=== PATIENT | male | born 1930 | race Caucasian/White ===

== ENCOUNTER 2020-10-04 13:17 | Inpatient (IN) | payer OTHER, MEDICARE ==
[~2020-10-04] VITALS: Ht 167.6 cm; Wt 93.5 kg
[2020-10-04 14:11] LABS: BASOPHILS ABSOLUTE AUTO 0.03 K/mm3 (0.00-0.23); BASOPHILS PERCENT AUTO 0 % (0-2); EOSINOPHILS ABSOLUTE AUTO 0.02 K/mm3 (0.00-0.68); EOSINOPHILS PERCENT AUTO 0 % (0-6); Hematocrit 40.7 % (37.0-53.0); Hemoglobin 13.3 g/dL (13.5-17.5); IMMATURE GRAN ABSOLUTE AUTO 0.06 K/mm3 (0.00-0.10); IMMATURE GRAN PERCENT AUTO 1 % (0-1); LYMPHOCYTES ABSOLUTE AUTO 0.59 K/mm3 (0.84-5.20); LYMPHOCYTES PERCENT AUTO 5 % (21-46); MONOCYTES ABSOLUTE AUTO 1.26 K/mm3 (0.16-1.47); MONOCYTES PERCENT AUTO 11 % (4-13); Mean Corpuscular HGB 29.6 pg (26.0-34.0); Mean Corpuscular HGB Conc 32.7 g/dL (31.5-36.5); Mean Corpuscular Volume 90 fL (80-100); Mean Platelet Volume 10.5 fL (9.1-12.4); NEUTROPHILS ABSOLUTE AUTO 9.76 K/mm3 (1.96-9.15); NEUTROPHILS PERCENT AUTO 83 % (41-73); Platelet Count 176 K/mm3 (150-400); RDW Coefficient Variation 13.9 % (11.7-14.2); RDW Standard Deviation 46.4 fL (35.1-46.3); White Blood Cell Count 11.72 K/mm3 (4.00-11.30)
[2020-10-04 14:47] LABS: Albumin, Blood 3.4 g/dL (3.4-5.0); Albumin/Globulin Ratio 1.1 (0.8-1.8); Bilirubin, Total 0.6 mg/dL (0.1-1.0); Calcium, Blood 8.3 mg/dL (8.5-10.1); Creatinine, Blood 1.48 mg/dL (0.60-1.20); Globulin, Blood 3.1 g/dL (2.2-4.0); Potassium, Blood 4.5 mmol/L (3.5-5.5); Total Protein, Blood 6.5 g/dL (6.4-8.2)
[2020-10-04 14:58] LABS: Troponin I 0.579 ng/mL (0.000-0.040)
[2020-10-04] MEDS ORDERED: FAMO20 PO (14:58)
[2020-10-04] MEDS ORDERED: PLAVIX75 MG PO (14:59)
[2020-10-04] MEDS ORDERED: LOSARTAN POTAS100 M1 PO (14:59)
[2020-10-04] MEDS ORDERED: INSULANPEN SC (15:26)
[2020-10-04] MEDS ORDERED: BUMETANIDE2 M2 PO (15:26)
[2020-10-04 15:37] LABS: Source, Urine Clean Catch
[2020-10-04 15:39] LABS: Appearance, Urine Clear (Clear); Bilirubin, Urine Neg (Neg); Blood, Urine 4+ (Neg); Color, Urine Yellow (P-Yellow); Glucose Qualitative, Urine Neg (Neg); Ketones, Urine Neg (Neg); Leukocyte Esterase, Urine 2+ (Neg); Nitrite, Urine Neg (Neg); Protein, Urine 4+ (Neg); Urobilinogen, Urine NORM (Normal)
[2020-10-04] MEDS ORDERED: DOXAZOSIN MESYLA4 M2 PO (15:44)
[2020-10-04 16:02] LABS: Bacteria Few /hpf; Hyaline Casts 0-2 /lpf (0-2); Squamous Epithelial Cells Few /hpf (Few)
--- NOTE | 2020-10-04 19:21 | NUR ---
ADMIT NOTE RECIEVED REPORT FROM LUZ ELENA IN ER. PT TO ROOM VIA MEJIA AT 1840. FOUR PERSON TRANSFER ASSIST TO BED. PT ON RA, BP ELEVATED AT 195/90, ALERT AND ORIENTED TO SELF, PLACE, EVENT. PT STATED THAT HE SUSTAINED INJURY FROM FALL ON RIGHT MARMOLEJO. THERE IS ALSO SOME BRUISING LOCATED RIGHT FLANK AND HIP. PT APPEARS CALM AND COMFORTABLE. CALL LIGHT IN REACH, BED LOW AND LOCKED.
[2020-10-04 22:48] LABS: Creatine Kinase MB 14.7 ng/mL (0.0-3.6); Creatine Kinase MB Index 1.5 (0.0-4.0)
[2020-10-04 22:59] LABS: Troponin I 0.995 ng/mL (0.000-0.040)
--- NOTE | 2020-10-05 06:28 | NUR ---
CHARTING THIS RN HAS REVIEWED STUDENT RN'S NOTES/CHARTING AND AGREE WITH ALL ABOVE. DOWNTIME PAPERCHARTING THIS SHIFT FROM 0000 - 0615. SEE CHART.
[2020-10-05 06:37] LABS: Hematocrit 36.2 % (37.0-53.0); Hemoglobin 11.8 g/dL (13.5-17.5); Mean Corpuscular HGB 29.1 pg (26.0-34.0); Mean Corpuscular HGB Conc 32.6 g/dL (31.5-36.5); Mean Corpuscular Volume 89 fL (80-100); Mean Platelet Volume 10.3 fL (9.1-12.4); Platelet Count 177 K/mm3 (150-400); RDW Standard Deviation 45.4 fL (35.1-46.3); Red Blood Cell Count 4.05 M/mm3 (4.30-5.90); White Blood Cell Count 9.04 K/mm3 (4.00-11.30)
[2020-10-05 07:21] LABS: Anion Gap 5 mmol/L (6-16); Blood Urea Nitrogen 34 mg/dL (8-24); Bun/Creatinine Ratio 21.2 (12.0-20.0); CHOL/HDL RATIO 3.8; CO2, Blood 23 mmol/L (21-32); CPK Creatine Kinase 872 U/L (39-308); Calcium, Blood 7.8 mg/dL (8.5-10.1); Chloride, Blood 114 mmol/L (98-108); Cholesterol 195 mg/dL (50-200); Creatine Kinase MB 10.5 ng/mL (0.0-3.6); Creatine Kinase MB Index 1.2 (0.0-4.0); Glomerular Filtration Rate 44 (60-); Glucose, Blood 106 mg/dL (70-99); HDL Cholesterol 51 mg/dL (>39); LDL/HDL RATIO 2.3; Low Density Lipoprotein Chol 118 mg/dL (0-110); Potassium, Blood 4.1 mmol/L (3.5-5.5); Sodium, Blood 142 mmol/L (136-145); Triglycerides 131 mg/dL (30-160); Very Low Density Lipoprot Chol 26 mg/dL (6-32)
[2020-10-05 07:28] LABS: Troponin I 0.619 ng/mL (0.000-0.040)
--- NOTE | 2020-10-05 16:35 | NUR ---
NEW ORDER FOR IGOR NOTED, PT RECEIVING IV FLUIDS, CALLED DR BRYSON TO CLARIFY ORDERS; NEW ORDERS TO DISCONTINUE IV FLUIDS NOW. CALLED DR WADE REGARDINS PT STATUS; PLANS TO STAY ANOTHER NIGHT; NEW ORDERS FOR MEDICAL STATUS WITH TELE. WILL CONTINUE TO HAYDEE.
--- NOTE | 2020-10-05 18:18 | NUR ---
SHIFT SUMMARY PT A&Oxx4; FORGETFUL AND SETTING OFF BEDALARM SEVERAL TIME T/O SHIFT. PT UP TO BATHROOM WITH 1PERSON ASSIST. PT DENIES PAIN, CHEST PAIN, SOB, NAUSEA AND DIZZINESS T/O SHIFT. DR SORIANO AT BEDSIDE THIS MORNING, PLANS TO DISCHARGE WITH ZIO PATCH FOR 2 WEEKS. BP TRENDING DOWN. TELE SINUS 60-70'S. OTHER VSS. NO OTHER ACUTE CHANGES NOTED. WILL CONTINUE TO MONITOR UNITL REPORT GIVEN TO ONCOMING RN.
--- NOTE | 2020-10-05 23:53 | NUR ---
TRANSFER OF CARE PATIENT IS ALERT AND ORIENTED BUT CAN BE IMPULSIVE AT TIMES. VSS. PATIENT DENIES CHEST PAIN. ABLE TO AMBULATE TO BATHROOM WITH STANDBY ASSIST AND USE OF CANE. NO ACUTE CHANGES SINCE CHANGE OF SHIFT. PATIENT TRANSFERED TO MEDICAL FLOOR AT 2350. ALL BELONGINGS WITH PATIENT. TRANSPORTED VIA WHEELCHAIR WITH [employer].
--- NOTE | 2020-10-06 00:02 | NUR ---
IV IS ACTUALLY IN THE R FA, NOT THE HAND.
--- NOTE | 2020-10-06 00:14 | NUR ---
10/05/20 2357 PT ARRIVED TO ROOM VIA WHEELCHAIR FROM PCU IN STABLE CONDITION. PT DENIES ANY DISCOMFORT AT THIS TIME. AGREE WITH PREVIOUS FLOATING LABOR GANG SUPERVISOR'S ASSESSMENT EXCEPT EDEMA IN LE'S I WOULD CLASSIFY 1+ PITTING. TELE IS NSR AT 60 PER TELE NECKTIES PAINTER. NO APPARENT SIGNS OF DISTRESS. CALL LIGHT IS IN REACH.
--- NOTE | 2020-10-06 03:52 | NUR ---
0230 PT LYING IN BED, EYES CLOSED, APPEARS TO BE RESTING. BREATHING IS EVEN, UNLABORED. NO APPARENT SIGNS OF DISTRESS. CALL LIGHT IS IN REACH. BED ALARM IS ON.
--- NOTE | 2020-10-06 03:53 | NUR ---
PT SET BED ALARM OFF. DRILLING AND PRODUCTION SUPERINTENDENT ASSISTING PT TO BATHROOM. NO OTHER APPARENT SIGNS OF DISTRESS. CALL LIGHT IS IN REACH.
--- NOTE | 2020-10-06 03:54 | NUR ---
PT IS AAO X 4 BUT DOES NOT REMEMBER TO USE HIS CALL LIGHT, BED ALARM IS IN USE. ON RA. TELE NSR. LAST BS WAS 192. PT DENIED ANY DISCOMFORT FOR THIS SHIFT. PT HAS EDEMA IN LE'S, 1+. PT HAS BRUISES AND ABRASIONS ON LE'S, R SHOULDER, R HIP, R BACK, R RIBS, BELLY. PT HAD TOENAIL RIPPED OFF OF THE L GREAT TOE, BANDAIDE IN PLACE. THERE IS A DRESSING ON THE R MARMOLEJO. UNK LAST BM, PT REFUSING STOOL SOFTENERS.
[2020-10-06 06:17] LABS: Albumin, Blood 2.8 g/dL (3.4-5.0); Anion Gap 4 mmol/L (6-16); Blood Urea Nitrogen 43 mg/dL (8-24); Bun/Creatinine Ratio 22.1 (12.0-20.0); CO2, Blood 24 mmol/L (21-32); Calcium, Blood 7.7 mg/dL (8.5-10.1); Chloride, Blood 115 mmol/L (98-108); Creatinine, Blood 1.95 mg/dL (0.60-1.20); Glomerular Filtration Rate 35 (60-); Glucose, Blood 124 mg/dL (70-99); Potassium, Blood 4.4 mmol/L (3.5-5.5); Sodium, Blood 143 mmol/L (136-145)
--- NOTE | 2020-10-06 06:19 | NUR ---
PER DR SORIANO, VERBAL ORDER, GIVE LOPRESSOR AND LOSARTAN NOW AND RECHECK VS AGAIN AT 0830.
--- NOTE | 2020-10-06 06:25 | NUR ---
PT LYING IN BED, AWAKE, NO APPARENT SIGNS OF DISTRESS. CALL LIGHT IS IN REACH. BED ALARM IS ON. NO OTHER CHANGES THIS SHIFT.
[2020-10-06] MEDS ORDERED: ASPI81CH PO (13:19)
[2020-10-06] MEDS ORDERED: ATOR20 PO (13:20)
[2020-10-06] MEDS ORDERED: Colace100 MG PO (13:20)
[2020-10-06] MEDS ORDERED: METO50 PO (13:21)
[2020-10-06] MEDS ORDERED: SENN187 PO (13:21)
--- NOTE | 2020-10-06 16:43 | NUR ---
PT AAOX4. PLEASANT AND COOPERATIVE WITH CARE. SBA. DENIES PAIN. NO SOB, LIANG NOTED. RR EVEN AND UNLABORED RA. IV R HAND SALINE LOCKED AND REMOVED AT DISCHARGE. APPETITE GOOD. PT AGREEABLE TO DC. [facility] DISCHARGE INSTUCTIONS AND MEDICATIONS REVIEWED, HE IS ABLE TO TEACH BACK, HE HAS NO QUESTIONS OR CONCERNS AT THIS TIME. PT DISCHARGED TO HOME 1515.
== END 2020-10-06 15:15 | disposition home or self-care (01) | DRG 281 ==
LOC: ER 13:17 → PCU 16:42 → MEDS 16:42 → PCU 17:25 → MEDS 18:40 → ENPENDDIS 10-06 12:50 → MEDS 10-06 15:15
PROVIDERS: Physician Assistant; ADMIT Internal Medicine
DX: I16.0 Hypertensive urgency (principal); I21.4 Non-ST elevation (NSTEMI) myocardial infarction; N17.9 Acute kidney failure, unspecified; I50.32 Chronic diastolic (congestive) heart failure; I13.0 Hypertensive heart and chronic kidney disease with heart failure and stage 1 through stage 4 chronic kidney disease, or unspecified chronic kidney disease; Z66 Do not resuscitate; N18.30 Chronic kidney disease, stage 3 unspecified; G47.33 Obstructive sleep apnea (adult) (pediatric); K21.9 Gastro-esophageal reflux disease without esophagitis; I27.20 Pulmonary hypertension, unspecified; Z60.2 Problems related to living alone; E66.9 Obesity, unspecified; N40.0 Benign prostatic hyperplasia without lower urinary tract symptoms; W18.30XA Fall on same level, unspecified, initial encounter; I65.22 Occlusion and stenosis of left carotid artery; I08.3 Combined rheumatic disorders of mitral, aortic and tricuspid valves; I25.10 Atherosclerotic heart disease of native coronary artery without angina pectoris; S90.412A Abrasion, left great toe, initial encounter; S80.811A Abrasion, right lower leg, initial encounter; S20.411A Abrasion of right back wall of thorax, initial encounter; S20.311A Abrasion of right front wall of thorax, initial encounter; E11.22 Type 2 diabetes mellitus with diabetic chronic kidney disease; E78.5 Hyperlipidemia, unspecified; Z79.02 Long term (current) use of antithrombotics/antiplatelets; Z86.73 Personal history of transient ischemic attack (TIA), and cerebral infarction without residual deficits; Z87.891 Personal history of nicotine dependence; Z79.4 Long term (current) use of insulin; Z79.899 Other long term (current) drug therapy
CPT/HCPCS: 36415; 70450; 71046; 80048; 80053; 80061; 80069; 81001; 82550; 82553; 82947; 83036; 83880; 84484; 85025; 85027; 87086; 93005; 93010; 93246; 93306; 93880; 96374; 97116; 97162; 97165; 97530; 97535; 99285-25; A9270; J0360; J1650; J7030

== ENCOUNTER 2021-03-01 09:08 | Inpatient (IN) | payer OTHER ==
[~2021-03-01] VITALS: Ht 167.6 cm; Wt 122.5 kg
[~2021-03-01 09:08] MED LIST: ATOR20 PO; Aspir 8181 MG PO; BUMETANIDE2 M2 PO; Colace100 MG PO; DOXAZOSIN MESYLA4 M2 PO; FAMO20 PO; INSULANPEN SC; LOSARTAN POTAS100 M1 PO; METO50 PO; PLAVIX75 MG PO; SENN187 PO
[2021-03-01 09:43] LABS: BASOPHILS ABSOLUTE AUTO 0.04 K/mm3 (0.00-0.23); BASOPHILS PERCENT AUTO 1 % (0-2); EOSINOPHILS ABSOLUTE AUTO 0.17 K/mm3 (0.00-0.68); EOSINOPHILS PERCENT AUTO 3 % (0-6); Hematocrit 40.1 % (37.0-53.0); Hemoglobin 12.6 g/dL (13.5-17.5); IMMATURE GRAN ABSOLUTE AUTO 0.01 K/mm3 (0.00-0.10); IMMATURE GRAN PERCENT AUTO 0 % (0-1); LYMPHOCYTES ABSOLUTE AUTO 0.73 K/mm3 (0.84-5.20); LYMPHOCYTES PERCENT AUTO 13 % (21-46); MONOCYTES ABSOLUTE AUTO 0.68 K/mm3 (0.16-1.47); MONOCYTES PERCENT AUTO 12 % (4-13); Mean Corpuscular HGB 28.2 pg (26.0-34.0); Mean Corpuscular HGB Conc 31.4 g/dL (31.5-36.5); Mean Corpuscular Volume 90 fL (80-100); Mean Platelet Volume 10.7 fL (9.1-12.4); NEUTROPHILS ABSOLUTE AUTO 4.05 K/mm3 (1.96-9.15); NEUTROPHILS PERCENT AUTO 71 % (41-73); Platelet Count 189 K/mm3 (150-400); RDW Coefficient Variation 16.2 % (11.7-14.2); RDW Standard Deviation 52.5 fL (35.1-46.3); Red Blood Cell Count 4.47 M/mm3 (4.30-5.90); White Blood Cell Count 5.68 K/mm3 (4.00-11.30)
[2021-03-01 09:58] LABS: Albumin, Blood 3.1 g/dL (3.4-5.0); Albumin/Globulin Ratio 0.9 (0.8-1.8); Bilirubin, Total 0.7 mg/dL (0.1-1.0); Bun/Creatinine Ratio 17.8 (12.0-20.0); Calcium, Blood 9.3 mg/dL (8.5-10.1); Creatinine, Blood 1.63 mg/dL (0.60-1.20); Globulin, Blood 3.5 g/dL (2.2-4.0); Potassium, Blood 4.1 mmol/L (3.5-5.5); Total Protein, Blood 6.6 g/dL (6.4-8.2); Troponin I 0.104 ng/mL (0.000-0.040)
[2021-03-01 11:31] LABS: SARS-Cov-2 (COVID-19) PCR, MMC NEGATIVE (NEGATIVE)
--- NOTE | 2021-03-01 17:33 | NUR ---
PT ADMITTED TO MEDICAL FLOOR AT 1530 FROM ED,PT AO X 4,PT HAVE SOB WITH EXERTION,PT ON 2L NC,PT DENIES PAIN,N/V.PT ON TELE RUNNING SINUS RATE 90,PT HAVE DISCOLORATIONS AND BRUISES BILATERAL LEGS UP TO KNEES,PT USES URENAL,PT IS A STANDBY ASSIST WITH A CANE.PT IN BED RESTING,BED IN LOW POSITION CALL LIGHT IN [facility] WILL CONTINUE TO MONITOR.
[2021-03-02 05:20] LABS: BASOPHILS ABSOLUTE AUTO 0.04 K/mm3 (0.00-0.23); BASOPHILS PERCENT AUTO 1 % (0-2); EOSINOPHILS ABSOLUTE AUTO 0.14 K/mm3 (0.00-0.68); EOSINOPHILS PERCENT AUTO 3 % (0-6); Hematocrit 35.4 % (37.0-53.0); Hemoglobin 11.1 g/dL (13.5-17.5); IMMATURE GRAN ABSOLUTE AUTO 0.01 K/mm3 (0.00-0.10); IMMATURE GRAN PERCENT AUTO 0 % (0-1); LYMPHOCYTES ABSOLUTE AUTO 0.73 K/mm3 (0.84-5.20); LYMPHOCYTES PERCENT AUTO 14 % (21-46); MONOCYTES ABSOLUTE AUTO 0.67 K/mm3 (0.16-1.47); MONOCYTES PERCENT AUTO 13 % (4-13); Mean Corpuscular HGB 28.2 pg (26.0-34.0); Mean Corpuscular HGB Conc 31.4 g/dL (31.5-36.5); Mean Corpuscular Volume 90 fL (80-100); Mean Platelet Volume 10.6 fL (9.1-12.4); NEUTROPHILS ABSOLUTE AUTO 3.68 K/mm3 (1.96-9.15); NEUTROPHILS PERCENT AUTO 70 % (41-73); Platelet Count 165 K/mm3 (150-400); RDW Coefficient Variation 16.2 % (11.7-14.2); RDW Standard Deviation 52.7 fL (35.1-46.3); Red Blood Cell Count 3.93 M/mm3 (4.30-5.90); White Blood Cell Count 5.27 K/mm3 (4.00-11.30)
[2021-03-02 05:48] LABS: Bun/Creatinine Ratio 16.5 (12.0-20.0); Calcium, Blood 8.7 mg/dL (8.5-10.1); Creatinine, Blood 2.06 mg/dL (0.60-1.20); Magnesium, Blood 2.4 mg/dL (1.6-2.4); Potassium, Blood 4.3 mmol/L (3.5-5.5)
--- NOTE | 2021-03-02 06:03 | NUR ---
PT HAS BEEN IN BED QUIET. O2 2L VIA NC IN PLACE. REMAINS SOB ON EXERTION. DENIES ANY DISCOMFORT. SAFETY AND COMFORT MEASURES MAINTAINED. SINUS GONZALEZ ON TELE 52. NO TELE EVENT. WILL CONTINUE TO MONITOR.
--- NOTE | 2021-03-02 19:21 | NUR ---
SHIFT SUMMARY PATIENT IS ALERT AND ORIENTED, COOPERATIVE WITH CARE. PATIENT IS CURRENTLY IN BED. PATIENT IS ON 2 LITERS OF 02 VIA NASAL CANNULA. PATIENT IS ON A 1200ML FLUID RESTRICTION. PATIENT'S HEART RATE DID DIP IN THE 4O'S, DOC WAS NOTIFIED. PATIENT'S CALL LIGHT WITHIN REACH. WILL CALL APPROPRIATELY.
[2021-03-03 06:24] LABS: Bun/Creatinine Ratio 17.5 (12.0-20.0); Calcium, Blood 8.6 mg/dL (8.5-10.1); Creatinine, Blood 2.57 mg/dL (0.60-1.20); Magnesium, Blood 2.4 mg/dL (1.6-2.4); Potassium, Blood 4.2 mmol/L (3.5-5.5)
--- NOTE | 2021-03-03 06:36 | NUR ---
SHIFT SUMMARY PATIENT ALERT AND ORIENTED X3. NO COMPLAINTS OF PAIN OR SHORTNESS OF BREATH. NO ACUTE ISSUES NOTED OVERNGIHT. BED IN LOWEST POSITION WITH WHEELS LOCKED AND ALARM ON. CALL LIGHT WITHIN REACH. REPORT GIVEN TO ONCOMING RN.
--- NOTE | 2021-03-03 17:28 | NUR ---
SHIFT SUMMARY PATIENT IS ALERT AND ORIENTED, AND COOPERATIVE WITH CARE. PATIENT IS STILL DIURESING. HANY CAME FOR A CONSULT. PATIENT DOES NOT NEED DIALYSIS AT THIS TIME. NO ACUTE CHANGES THIS SHIFT. POSSIBLE PLAN FOR DISCHARGE WITHIN A DAY OR TWO.
--- NOTE | 2021-03-04 04:39 | NUR ---
SHIFT SUMMARY PT SLIGHTLY FORGETFUL AT TIMES BUT OTHERWISE WAS A/O THROUGHOUT THE NIGHT. CALLED APPROPRIATELY MOST OF THE TIME. BED ALARM ON FOR SAFETY. CONTINENT WITH URINAL. PT DOES APPEAR TO GET SOB WITH EXERTION BUT RECOVERS WELL. REMAINED ON RA THROUGH MOST OF THE NIGHT BUT WITH MORNING VITALS PT O2 SATS WERE 86-88% ON RA AND PT WAS PLACED ON 1 L WITH O2 SATS IN THE LOW 90'S. LUNG SOUNDS DIMINISHED THROUGHOUT. TELEMETRY PER OPTICAL WORKER SINUS GONZALEZ WITH INVERTED T WAVES AT 54. PT STAYED WELL WITHIN FLUID RESTRICTION. VITAL SIGNS STABLE. PT HAD A MOSTLY UNEVENTFUL NIGHT. WILL CONTINUE TO MONITOR.
[2021-03-04 05:57] LABS: BASOPHILS ABSOLUTE AUTO 0.03 K/mm3 (0.00-0.23); BASOPHILS PERCENT AUTO 1 % (0-2); EOSINOPHILS ABSOLUTE AUTO 0.14 K/mm3 (0.00-0.68); EOSINOPHILS PERCENT AUTO 3 % (0-6); Hematocrit 34.7 % (37.0-53.0); Hemoglobin 10.8 g/dL (13.5-17.5); IMMATURE GRAN ABSOLUTE AUTO 0.01 K/mm3 (0.00-0.10); IMMATURE GRAN PERCENT AUTO 0 % (0-1); LYMPHOCYTES ABSOLUTE AUTO 0.77 K/mm3 (0.84-5.20); LYMPHOCYTES PERCENT AUTO 18 % (21-46); MONOCYTES ABSOLUTE AUTO 0.64 K/mm3 (0.16-1.47); MONOCYTES PERCENT AUTO 15 % (4-13); Mean Corpuscular HGB 28.2 pg (26.0-34.0); Mean Corpuscular HGB Conc 31.1 g/dL (31.5-36.5); Mean Corpuscular Volume 91 fL (80-100); Mean Platelet Volume 11.5 fL (9.1-12.4); NEUTROPHILS ABSOLUTE AUTO 2.74 K/mm3 (1.96-9.15); NEUTROPHILS PERCENT AUTO 63 % (41-73); Platelet Count 155 K/mm3 (150-400); RDW Standard Deviation 53.1 fL (35.1-46.3); Red Blood Cell Count 3.83 M/mm3 (4.30-5.90); White Blood Cell Count 4.33 K/mm3 (4.00-11.30)
[2021-03-04 06:17] LABS: Albumin, Blood 2.5 g/dL (3.4-5.0); Albumin/Globulin Ratio 0.8 (0.8-1.8); Bilirubin, Total 0.5 mg/dL (0.1-1.0); Bun/Creatinine Ratio 20.7 (12.0-20.0); Calcium, Blood 8.5 mg/dL (8.5-10.1); Creatinine, Blood 2.37 mg/dL (0.60-1.20); Magnesium, Blood 2.3 mg/dL (1.6-2.4); Phosphorus, Blood 4.1 mg/dL (2.5-4.9); Potassium, Blood 4.2 mmol/L (3.5-5.5); Total Protein, Blood 5.5 g/dL (6.4-8.2)
--- NOTE | 2021-03-04 16:23 | NUR ---
SHIFT SUMMARY PATIENT DENIES PAIN, NAUSEA, AND SHORTNESS OF BREATH. PATIENT IS A SBA TO THE BATHROOM. PATIENT IS ON 1L N/C. MAINTAINING SATS IN THE MID 90S. PATIENT IS EATING AND DRINKING WELL. PT WORKED WITH PATIENT. PT RECOMMENDED HOME WITH HOME HEALTH AND INCREASED [facility] SUPPORT. PATIENT NAPPED IN THE AFTERNOON. PATIENT CAN INDEPENDENTLY USE THE URINAL. PATIENT IS PLEASANT AND COOPERATIVE WITH CARE.
[2021-03-05 05:18] LABS: Hematocrit 33.8 % (37.0-53.0); Hemoglobin 10.6 g/dL (13.5-17.5)
[2021-03-05 05:47] LABS: Albumin, Blood 2.5 g/dL (3.4-5.0); Anion Gap 3 mmol/L (6-16); Blood Urea Nitrogen 52 mg/dL (8-24); Bun/Creatinine Ratio 22.8 (12.0-20.0); CO2, Blood 31 mmol/L (21-32); Calcium, Blood 8.5 mg/dL (8.5-10.1); Chloride, Blood 109 mmol/L (98-108); Creatinine, Blood 2.28 mg/dL (0.60-1.20); Glomerular Filtration Rate 27 (60-); Glucose, Blood 109 mg/dL (70-99); Magnesium, Blood 2.2 mg/dL (1.6-2.4); Phosphorus, Blood 3.8 mg/dL (2.5-4.9); Potassium, Blood 4.4 mmol/L (3.5-5.5); Sodium, Blood 143 mmol/L (136-145)
--- NOTE | 2021-03-05 07:42 | NUR ---
SHIFT SUMMARY PT IS AN 89 Y/O MALE, ADMITTED FOR CHF EXACERBATION. HE IS A&O X 3, SBA OUT OF BED. TELE SHOWED NSR/SB IN THE 50-60S. NO C/O ACUTE PAIN, NAUSEA OR SOB. NO ACUTE CHANGES IN PT CONDITION NOTED DURING THE NIGHT. WILL CONTINUE TO MONITOR AND TREAT PER EMAR UNTIL HAND OFF TO DAY SHIFT RN.
--- NOTE | 2021-03-05 18:13 | NUR ---
PT AO X 4,PT DENIES ANY PAIN,N/V,SOB,PT ON TELE SINUS GONZALEZ.PT ON 1L NC SATS IN HIGH 90S,PT UP WITH WALKER TO BATHROOM,PT USES URENAL INDEPEND.PT HAS NO ACUTES EVENTS T/O SHIFT,PT UP IN THE CHAIR,CALL LIGHT IN REACH WILL CONTINUE TO MONITOR.
[2021-03-06 04:41] LABS: Hematocrit 32.3 % (37.0-53.0); Hemoglobin 10.1 g/dL (13.5-17.5)
[2021-03-06 04:57] LABS: Albumin, Blood 2.3 g/dL (3.4-5.0); Anion Gap 3 mmol/L (6-16); Blood Urea Nitrogen 50 mg/dL (8-24); Bun/Creatinine Ratio 24.3 (12.0-20.0); CO2, Blood 31 mmol/L (21-32); Calcium, Blood 8.3 mg/dL (8.5-10.1); Chloride, Blood 111 mmol/L (98-108); Creatinine, Blood 2.06 mg/dL (0.60-1.20); Glomerular Filtration Rate 31 (60-); Glucose, Blood 100 mg/dL (70-99); Magnesium, Blood 2.2 mg/dL (1.6-2.4); Phosphorus, Blood 3.4 mg/dL (2.5-4.9); Potassium, Blood 4.1 mmol/L (3.5-5.5); Sodium, Blood 145 mmol/L (136-145)
--- NOTE | 2021-03-06 05:35 | NUR ---
RIGGING FOREMAN SUMMARY HAS BEEN RESTING QUIETLY WITH FEW INTERRUPTIONS THIS SHIFT. SAID INTERRUPTIONS INCLUDED ASSISTANCE WITH BEING CHANGED FOR INCONTINENCE. REPOSITIONING, ETC. HOB REMAINS ELEVATED. CALL LIGHT IN REACH.
--- NOTE | 2021-03-06 14:03 | NUR ---
PT AO,PT DENIES PAIN,NV,SOB.PT ON ROOM AIR SATTING IN THE 90S,PT ASSESSMENT REMAINS UNCHANGED.PT IS DISCHARGE HOME WITH PERSONNEL ASSOCIATE,PT GATHER ALL BELONGINGS,PT SITTING UP IN CHAIR WAITING FOR TRANSPORT.
--- NOTE | 2021-03-06 15:35 | NUR ---
Pt.is in bed resting he reports doing fien encouraged pt and offered prayerd.
== END 2021-03-06 12:36 | disposition home health service (06) | DRG 291 ==
LOC: ER 09:08 → MEDS 09:09 → ENPENDDIS 03-06 12:40
PROVIDERS: Emergency Medicine; Internal Medicine Nephrology; ADMIT Internal Medicine
DX: I13.0 Hypertensive heart and chronic kidney disease with heart failure and stage 1 through stage 4 chronic kidney disease, or unspecified chronic kidney disease (principal); N17.0 Acute kidney failure with tubular necrosis; I50.21 Acute systolic (congestive) heart failure; J96.01 Acute respiratory failure with hypoxia; N25.81 Secondary hyperparathyroidism of renal origin; E87.0 Hyperosmolality and hypernatremia; Z20.822 Contact with and (suspected) exposure to COVID-19; K21.9 Gastro-esophageal reflux disease without esophagitis; I27.20 Pulmonary hypertension, unspecified; D63.1 Anemia in chronic kidney disease; M10.9 Gout, unspecified; N40.0 Benign prostatic hyperplasia without lower urinary tract symptoms; F10.10 Alcohol abuse, uncomplicated; G47.33 Obstructive sleep apnea (adult) (pediatric); I08.3 Combined rheumatic disorders of mitral, aortic and tricuspid valves; I65.22 Occlusion and stenosis of left carotid artery; I25.10 Atherosclerotic heart disease of native coronary artery without angina pectoris; Z66 Do not resuscitate; N18.30 Chronic kidney disease, stage 3 unspecified; E78.5 Hyperlipidemia, unspecified; J44.9 Chronic obstructive pulmonary disease, unspecified; E11.22 Type 2 diabetes mellitus with diabetic chronic kidney disease; I25.2 Old myocardial infarction; Z87.891 Personal history of nicotine dependence; Z86.73 Personal history of transient ischemic attack (TIA), and cerebral infarction without residual deficits; Z98.890 Other specified postprocedural states; Z79.02 Long term (current) use of antithrombotics/antiplatelets; Z79.82 Long term (current) use of aspirin; Z79.899 Other long term (current) drug therapy
CPT/HCPCS: 36415; 71045; 76770; 80048; 80053; 80069; 82947; 83735; 83880; 84100; 84484; 85014; 85018; 85025; 90686; 93005; 93010; 94761; 94762; 96372; 96374; 96376; 97110; 97116; 97162; 99285-25; A9270; C8929; G0378; J1650; J1815; Q9957; U0004

== ENCOUNTER 2021-03-28 10:43 | Inpatient (IN) | payer OTHER ==
[~2021-03-28] VITALS: Ht 167.6 cm; Wt 90.7 kg
[~2021-03-28 10:43] MED LIST changes: -Colace100 MG PO
[2021-03-28 11:31] LABS: BASOPHILS ABSOLUTE AUTO 0.06 K/mm3 (0.00-0.23); BASOPHILS PERCENT AUTO 1 % (0-2); EOSINOPHILS ABSOLUTE AUTO 0.16 K/mm3 (0.00-0.68); EOSINOPHILS PERCENT AUTO 3 % (0-6); Hematocrit 39.2 % (37.0-53.0); Hemoglobin 12.2 g/dL (13.5-17.5); IMMATURE GRAN ABSOLUTE AUTO 0.02 K/mm3 (0.00-0.10); IMMATURE GRAN PERCENT AUTO 0 % (0-1); LYMPHOCYTES ABSOLUTE AUTO 0.89 K/mm3 (0.84-5.20); LYMPHOCYTES PERCENT AUTO 16 % (21-46); MONOCYTES ABSOLUTE AUTO 0.63 K/mm3 (0.16-1.47); MONOCYTES PERCENT AUTO 12 % (4-13); Mean Corpuscular HGB Conc 31.1 g/dL (31.5-36.5); Mean Corpuscular Volume 90 fL (80-100); Mean Platelet Volume 10.9 fL (9.1-12.4); NEUTROPHILS ABSOLUTE AUTO 3.72 K/mm3 (1.96-9.15); NEUTROPHILS PERCENT AUTO 68 % (41-73); Platelet Count 194 K/mm3 (150-400); RDW Coefficient Variation 15.9 % (11.7-14.2); Red Blood Cell Count 4.35 M/mm3 (4.30-5.90); White Blood Cell Count 5.48 K/mm3 (4.00-11.30)
[2021-03-28 12:10] LABS: Albumin/Globulin Ratio 0.8 (0.8-1.8); Bilirubin, Total 0.5 mg/dL (0.1-1.0); Bun/Creatinine Ratio 20.2 (12.0-20.0); Calcium, Blood 9.2 mg/dL (8.5-10.1); Creatinine, Blood 1.73 mg/dL (0.60-1.20); Globulin, Blood 3.6 g/dL (2.2-4.0); Potassium, Blood 4.3 mmol/L (3.5-5.5); Total Protein, Blood 6.6 g/dL (6.4-8.2); Troponin I 0.228 ng/mL (0.000-0.040)
[2021-03-28] MEDS ORDERED: DOXAZOSIN MESYLA2 MG PO (15:46)
[2021-03-28] MEDS ORDERED: DOCU100 PO (16:11)
--- NOTE | 2021-03-28 19:44 | NUR ---
ADMIT NOTE 89 YR OLD MALE ADMITTED TO FLOOR FROM HE ED WITH DX OF CHF EXACERBATION. ALERT TO QUESTIONS ASKED. NKA. ORIENTE TO USE OF CALL LIGHT AND BED CONROL. CALL LIGHT IN REACH,
--- NOTE | 2021-03-29 04:53 | NUR ---
WAYBILL CLERK SUMMARY PT WAS ADMITTED AT SHIFT COMMENCE WITH CHF. 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 MED TELE IN THE 70'S, BUT OCCASIONALLY DROPPED INTO THE HIGH 40'S. EACH TIME WAS ASSESSED AND WAS FOUND TO BE SLEEPING. DENIED CHEST PAIN. CALL LIGHT IN REACH
[2021-03-29 05:00] LABS: BASOPHILS ABSOLUTE AUTO 0.05 K/mm3 (0.00-0.23); BASOPHILS PERCENT AUTO 1 % (0-2); EOSINOPHILS ABSOLUTE AUTO 0.17 K/mm3 (0.00-0.68); EOSINOPHILS PERCENT AUTO 4 % (0-6); Hemoglobin 11.1 g/dL (13.5-17.5); IMMATURE GRAN ABSOLUTE AUTO 0.02 K/mm3 (0.00-0.10); IMMATURE GRAN PERCENT AUTO 1 % (0-1); LYMPHOCYTES ABSOLUTE AUTO 0.74 K/mm3 (0.84-5.20); LYMPHOCYTES PERCENT AUTO 18 % (21-46); MONOCYTES ABSOLUTE AUTO 0.54 K/mm3 (0.16-1.47); MONOCYTES PERCENT AUTO 13 % (4-13); Mean Corpuscular HGB 27.8 pg (26.0-34.0); Mean Corpuscular HGB Conc 30.8 g/dL (31.5-36.5); Mean Corpuscular Volume 90 fL (80-100); Mean Platelet Volume 11.2 fL (9.1-12.4); NEUTROPHILS ABSOLUTE AUTO 2.58 K/mm3 (1.96-9.15); NEUTROPHILS PERCENT AUTO 63 % (41-73); Platelet Count 164 K/mm3 (150-400); RDW Coefficient Variation 15.6 % (11.7-14.2); RDW Standard Deviation 51.5 fL (35.1-46.3); Red Blood Cell Count 3.99 M/mm3 (4.30-5.90)
[2021-03-29 05:35] LABS: Albumin, Blood 2.7 g/dL (3.4-5.0); Albumin/Globulin Ratio 0.9 (0.8-1.8); Bilirubin, Total 0.5 mg/dL (0.1-1.0); Bun/Creatinine Ratio 19.3 (12.0-20.0); Calcium, Blood 8.5 mg/dL (8.5-10.1); Creatinine, Blood 1.76 mg/dL (0.60-1.20); Magnesium, Blood 2.1 mg/dL (1.6-2.4); Potassium, Blood 4.2 mmol/L (3.5-5.5); Total Protein, Blood 5.7 g/dL (6.4-8.2)
--- NOTE | 2021-03-29 18:40 | NUR ---
PT ALERT ORIENTED X 3,BUT FORGETFUL AT TIMES.PT UP WITH WALKER TO BATROOM,PT USE UNRINAL INDEPEND.PT HAVE BLE REDNESS LEG.PT ON 1L NC SATS IN 90S.PT IN BED,CALL LIGHT IN REACH WILL CONTINUE TO MONITOR.
--- NOTE | 2021-03-30 06:28 | NUR ---
SHIFT SUMMARY PATIENT HAD NO ACUTE CHANGES OBSERVED. BP MEDS HELD WITH HR 55 AND IN THE LOW 40'S ON DAY SHIFT. AXOX 3 AND INDEPENDENT IN ROOM. RESEARCH ASSISTANT PROFESSOR REPORTS NSR 61. DENIES CHEST PAIN, SOB, AND N/V. WCTM.
[2021-03-30 06:34] LABS: BASOPHILS ABSOLUTE AUTO 0.04 K/mm3 (0.00-0.23); BASOPHILS PERCENT AUTO 1 % (0-2); EOSINOPHILS ABSOLUTE AUTO 0.25 K/mm3 (0.00-0.68); EOSINOPHILS PERCENT AUTO 5 % (0-6); Hematocrit 33.5 % (37.0-53.0); Hemoglobin 10.6 g/dL (13.5-17.5); IMMATURE GRAN ABSOLUTE AUTO 0.01 K/mm3 (0.00-0.10); IMMATURE GRAN PERCENT AUTO 0 % (0-1); LYMPHOCYTES ABSOLUTE AUTO 0.85 K/mm3 (0.84-5.20); LYMPHOCYTES PERCENT AUTO 18 % (21-46); MONOCYTES ABSOLUTE AUTO 0.62 K/mm3 (0.16-1.47); MONOCYTES PERCENT AUTO 13 % (4-13); Mean Corpuscular HGB 28.3 pg (26.0-34.0); Mean Corpuscular HGB Conc 31.6 g/dL (31.5-36.5); Mean Corpuscular Volume 90 fL (80-100); Mean Platelet Volume 11.4 fL (9.1-12.4); NEUTROPHILS ABSOLUTE AUTO 2.92 K/mm3 (1.96-9.15); NEUTROPHILS PERCENT AUTO 62 % (41-73); Platelet Count 166 K/mm3 (150-400); RDW Coefficient Variation 15.3 % (11.7-14.2); Red Blood Cell Count 3.74 M/mm3 (4.30-5.90); White Blood Cell Count 4.69 K/mm3 (4.00-11.30)
[2021-03-30 07:15] LABS: Albumin, Blood 2.7 g/dL (3.4-5.0); Bilirubin, Total 0.4 mg/dL (0.1-1.0); Calcium, Blood 8.4 mg/dL (8.5-10.1); Creatinine, Blood 1.85 mg/dL (0.60-1.20); Globulin, Blood 2.8 g/dL (2.2-4.0); Total Protein, Blood 5.5 g/dL (6.4-8.2)
--- NOTE | 2021-03-30 08:00 | NUR ---
Pt laying in bed with eyes closed, wakes easily, a/ox3, pleasant and cooperative with care, follows commands well, denies pain, reports a goodn night, lungs are dim in bases, dominique left base, currently on r/a, resp even and unlabored, no cough noted, hrr, tele in place running sr per monitor, see strip, trace edema noted to b/l le, ppp+1, cap refill <3sec, vs stable, afebrile, iv site is clear and patent, btx4, abd flat soft nontender, voids without diff, skin c/w/d, maew, alvin, call light in reach.
--- NOTE | 2021-03-30 18:36 | NUR ---
pt has been up to chair for his meals, always says he's is doing fine and ready to go home, did have a 14 beat run of vtach this afternoon, Dr. Mar was notified and no new orders recieved. call light in reach.
--- NOTE | 2021-03-31 04:24 | NUR ---
SHIFT SUMMARY PATIENT REPORTED SOB WHILE SLEEPING AND ASKED TO BE PUT BACK ON OXYGEN. WAS STATING 95% AT SHIFT CHANGE ON RA AND ON 2L O2 NC DAY BEFORE. PLACED ON 2L O2 NC AND STATING 98%. LESS ANXIOUS AND ABLE TO GO BACK TO SLEEP. AXOX 3 AND INDEPENDENT IN ROOM. PIV REMAINS INTACT. VOLUNTEER COORDINATOR REPORTS NSR 74. DENIES CHEST PAIN AND N/V. VSS/AFEBRILE. CBG 129. COOPERATIVE WITH CARE. CALL LIGHT IN REACH. BED IN LOWEST POSITION. WILL CONTINUE TO MONITOR UNTIL DAY SHIFT NURSE ASSUMES CARE.
[2021-03-31 05:59] LABS: Calcium, Blood 8.4 mg/dL (8.5-10.1); Creatinine, Blood 1.9 mg/dL (0.60-1.20); Potassium, Blood 3.9 mmol/L (3.5-5.5); Thyroid Stimulating Hormone 0.576 uIU/mL (0.360-4.800)
[2021-03-31] MEDS ORDERED: METO25 PO (09:03)
--- NOTE | 2021-03-31 12:32 | NUR ---
PT IS A&O, PLEASANT AND CO-OP. INDEPENDENT IN RM AND TO BTHRM USING CANE. PT ABLE TO WALK IN HALLS WITH P/T; PT IS CURRENTLY AT BASELINE. RT NOTIFIED FOR HOME O2 EVAL. PT DOES NOT REQUIRE O2. PT REPORTS THAT HE DOES NOT WEAR IT. PT'S SON CALLED TO REQUEST MED LIST TO BE EMAILED TO HIM. NOTIFIED MEDICAL RECORDS TO CLARIFY. PT'S SON WILL NEED TO FILL OUT A REQUEST AFTER D/C. D/C MED LIST TO BE SENT HOME WITH PT FOR H/H RN TO HELP PT WITH HIS MEDS. D/C INSTRUCTIONS REVIEWED WITH PT; VERBALIZED UNDERSTANDING. PT ASSISTED WITH BELONGINGS. ABLE TO USE CALL LT NEEDED. TRANSPORTATION TO BE ARRANGED FOR AFTER LUNCH.
--- NOTE | 2021-03-31 15:13 | NUR ---
KENG RN UNABLE TO REACH CO FOR PT TRANSPORT. [facility] CALLED TO ASSIST PT HOME.
== END 2021-03-31 14:45 | disposition home health service (06) | DRG 291 ==
LOC: ER 10:43 → ERHOLD 14:13 → MEDS 14:13
PROVIDERS: Emergency Medicine; Nurse Practitioner Acute Care; ADMIT Internal Medicine
DX: I13.0 Hypertensive heart and chronic kidney disease with heart failure and stage 1 through stage 4 chronic kidney disease, or unspecified chronic kidney disease (principal); I50.23 Acute on chronic systolic (congestive) heart failure; J96.01 Acute respiratory failure with hypoxia; Z66 Do not resuscitate; R00.1 Bradycardia, unspecified; N18.30 Chronic kidney disease, stage 3 unspecified; I25.10 Atherosclerotic heart disease of native coronary artery without angina pectoris; E11.22 Type 2 diabetes mellitus with diabetic chronic kidney disease; K21.9 Gastro-esophageal reflux disease without esophagitis; N40.0 Benign prostatic hyperplasia without lower urinary tract symptoms; I25.5 Ischemic cardiomyopathy; E78.5 Hyperlipidemia, unspecified; I27.20 Pulmonary hypertension, unspecified; Z28.21 Immunization not carried out because of patient refusal; I35.0 Nonrheumatic aortic (valve) stenosis; I25.2 Old myocardial infarction; M10.9 Gout, unspecified; Z91.19 Patient's noncompliance with other medical treatment and regimen; G47.33 Obstructive sleep apnea (adult) (pediatric); Z79.02 Long term (current) use of antithrombotics/antiplatelets; Z79.82 Long term (current) use of aspirin; Z79.899 Other long term (current) drug therapy; Z86.73 Personal history of transient ischemic attack (TIA), and cerebral infarction without residual deficits
CPT/HCPCS: 36415; 71045; 80048; 80053; 82947; 83735; 83880; 84443; 84484; 85025; 93005; 93010; 94760; 96374; 97161; 99285-25; A9270; J1650

== ENCOUNTER 2021-04-20 04:30 | Inpatient (IN) | payer OTHER ==
[~2021-04-20] VITALS: Ht 175.3 cm; Wt 77.9 kg
[~2021-04-20 04:30] MED LIST changes: +DOCU100 PO; +DOXAZOSIN MESYLA2 MG PO; +METO25 PO
[2021-04-20 04:55] LABS: BASOPHILS ABSOLUTE AUTO 0.04 K/mm3 (0.00-0.23); BASOPHILS PERCENT AUTO 1 % (0-2); EOSINOPHILS ABSOLUTE AUTO 0.23 K/mm3 (0.00-0.68); EOSINOPHILS PERCENT AUTO 3 % (0-6); Hematocrit 40.5 % (37.0-53.0); Hemoglobin 12.6 g/dL (13.5-17.5); IMMATURE GRAN ABSOLUTE AUTO 0.03 K/mm3 (0.00-0.10); IMMATURE GRAN PERCENT AUTO 0 % (0-1); LYMPHOCYTES ABSOLUTE AUTO 1.13 K/mm3 (0.84-5.20); LYMPHOCYTES PERCENT AUTO 17 % (21-46); MONOCYTES ABSOLUTE AUTO 0.73 K/mm3 (0.16-1.47); MONOCYTES PERCENT AUTO 11 % (4-13); Mean Corpuscular HGB 27.9 pg (26.0-34.0); Mean Corpuscular HGB Conc 31.1 g/dL (31.5-36.5); Mean Corpuscular Volume 90 fL (80-100); Mean Platelet Volume 10.3 fL (9.1-12.4); NEUTROPHILS ABSOLUTE AUTO 4.61 K/mm3 (1.96-9.15); NEUTROPHILS PERCENT AUTO 68 % (41-73); Platelet Count 212 K/mm3 (150-400); RDW Standard Deviation 49.8 fL (35.1-46.3); Red Blood Cell Count 4.52 M/mm3 (4.30-5.90); White Blood Cell Count 6.77 K/mm3 (4.00-11.30)
[2021-04-20 05:40] LABS: Albumin, Blood 3.1 g/dL (3.4-5.0); Albumin/Globulin Ratio 0.8 (0.8-1.8); Bilirubin, Total 0.3 mg/dL (0.1-1.0); Bun/Creatinine Ratio 24.7 (12.0-20.0); Calcium, Blood 8.8 mg/dL (8.5-10.1); Creatinine, Blood 1.5 mg/dL (0.60-1.20); Globulin, Blood 3.7 g/dL (2.2-4.0); Potassium, Blood 4.3 mmol/L (3.5-5.5); Total Protein, Blood 6.8 g/dL (6.4-8.2); Troponin I 0.051 ng/mL (0.000-0.040)
[2021-04-20 05:53] LABS: Influenza A, PCR NEGATIVE (NEGATIVE); Influenza B, PCR NEGATIVE (NEGATIVE); Resp Syncytial Virus, PCR NEGATIVE (NEGATIVE); SARS-Cov-2 (COVID-19) PCR, MMC NEGATIVE (NEGATIVE)
--- NOTE | 2021-04-20 10:00 | NUR ---
ADMISSION PT ADMITTED FROM THE ER THIS AM.HE IS A&O X4. O2 VIA NC, RESP UNLABORED AT THIS TIME. PT WAS ABLE TO STAND AND TRANSFER FROM THE GURNY TO THE BED. PT DENIES CP/PRESSURE. TELE MONITOR PLACED, VSS, URINAL PROVIDED, BED IN LOW POSITION, CALL LIGHT IN REACH.
--- NOTE | 2021-04-20 18:32 | NUR ---
SHIFT SUMMARY PT REMAINS A&O X4, CALLS APPROPRIATLY PRN FOR ASSISTANCE TO THE BATHROOM OR USE OF THE URINAL. PT CONTINUES TO DENY CP/PRESSURE, VSS, ON RA AT THIS TIME, SPO2 >95%. PT DECIDED TO REWMOVE HIS O2 THIS EVENING, HE IS REFUSING TO WEAR IT, RESP UNLABORED, NC AT BEDSIDE, SPO2 MONITOR IN PLACE. PT IS TOLERARTING PO INTAKE. NO OTHER CHANGES NOTED, CALL LIGHT IN REACH, BED IN LOW POSITION.
--- NOTE | 2021-04-21 06:37 | NUR ---
SHIFT SUMMARY - NO ACUTE CHANGES THIS SHIFT. PT WAS ABLE TO AMBULATE TO BRP WITH CANE AND A SBA. PT WEARS AN ATTENDS, BUT IS ABLE TO STAND AT TOILET FOR URINATION, AND PLACING HANDS ON RIVAS. PT DENIED ANY COMPLAINTS DURING THE NIGHT. PT IS ON A FLUID RESTRICTION OF 1500. PT IS REQUESTING COFFEE THIS AM - PT ON CARDIAC DIET - WILL PROVIDE DECAF COFFEE. PT DENIED ANY HEADACHE, CHEST PAIN, NAUSEA, SOB, OR NUMBNESS/TINGLING. CALL LIGHT WITHIN REACH. BED IN LOW POSITION. BED ALARM ON FOR SAFETY. FLUIDS AT BEDSIDE.
--- NOTE | 2021-04-21 18:29 | NUR ---
PT IS VERY IMPULSIVE, PT WAS FOUND IN BATHROOM CLEANING UP FROM BM WHICH HE DID NOT CALL FOR ASSISTANCE TO GET UP. PT IS A/O X3, BUT IS VERY FORGETFUL. PT DIES REPORT IMPROVEMENT OF BREATHING T/O THE DAY, PT DOES APPEAR TO BE BREATHING BETTER THIS AFTERNOON, BUT MENTAL STATUS HAS REMAINED UNCHANGED
--- NOTE | 2021-04-21 21:40 | NUR ---
ASSUMED CARE OF PATIENT AT 1900. PATIENT A/OX4 WITH PERIODS ON IMPULSIVITY WITH TRYING TO GET UP. I GOT PATIENT UP TO THE BATHROOM AND HE WAS VERY UNSTEADY ON HIS FEET, CHANGED IT TO [facility] WITH 1 ASSIST. PUPILS 2 AND SLUGGISH BL, WITH FAINT +1 PEDAL AND RADIAL PULSES. SLIGHT FINE CRACKLES AT BASES WITH TOP DIM. SR WITH PVC'S ON MONITOR. ABRASION ON BUTTOCK FROM ITCHING THAT BLED SOME. MAINTAINING ABOVE 90% ON RA WITH HS NC. WILL UPDATE THIS NOTE WITH ANY CHANGES DURING THIS SHIFT
[2021-04-22 04:13] LABS: BASOPHILS ABSOLUTE AUTO 0.06 K/mm3 (0.00-0.23); BASOPHILS PERCENT AUTO 1 % (0-2); EOSINOPHILS ABSOLUTE AUTO 0.25 K/mm3 (0.00-0.68); EOSINOPHILS PERCENT AUTO 5 % (0-6); Hematocrit 34.6 % (37.0-53.0); Hemoglobin 10.7 g/dL (13.5-17.5); IMMATURE GRAN ABSOLUTE AUTO 0.02 K/mm3 (0.00-0.10); IMMATURE GRAN PERCENT AUTO 0 % (0-1); LYMPHOCYTES ABSOLUTE AUTO 0.91 K/mm3 (0.84-5.20); LYMPHOCYTES PERCENT AUTO 19 % (21-46); MONOCYTES PERCENT AUTO 13 % (4-13); Mean Corpuscular HGB 27.6 pg (26.0-34.0); Mean Corpuscular HGB Conc 30.9 g/dL (31.5-36.5); Mean Corpuscular Volume 89 fL (80-100); Mean Platelet Volume 10.2 fL (9.1-12.4); NEUTROPHILS ABSOLUTE AUTO 2.96 K/mm3 (1.96-9.15); NEUTROPHILS PERCENT AUTO 62 % (41-73); Platelet Count 170 K/mm3 (150-400); RDW Coefficient Variation 14.9 % (11.7-14.2); RDW Standard Deviation 48.9 fL (35.1-46.3); Red Blood Cell Count 3.87 M/mm3 (4.30-5.90)
[2021-04-22 04:48] LABS: Albumin, Blood 2.7 g/dL (3.4-5.0); Anion Gap 5 mmol/L (6-16); Blood Urea Nitrogen 47 mg/dL (8-24); CO2, Blood 28 mmol/L (21-32); Calcium, Blood 8.4 mg/dL (8.5-10.1); Chloride, Blood 110 mmol/L (98-108); Creatinine, Blood 1.88 mg/dL (0.60-1.20); Glomerular Filtration Rate 34 (60-); Glucose, Blood 103 mg/dL (70-99); Magnesium, Blood 2.2 mg/dL (1.6-2.4); Phosphorus, Blood 3.7 mg/dL (2.5-4.9); Potassium, Blood 4.2 mmol/L (3.5-5.5); Sodium, Blood 143 mmol/L (136-145)
[2021-04-22] MEDS ORDERED: LOSA25 PO (11:37)
--- NOTE | 2021-04-22 13:33 | NUR ---
PT EXPRESSED UNDERSTANDING OF NEW MEDICATION ADMINISTRATION, HE DENIES FURTHER QUESTIONS ABOUT DC TAECHING. PT'S MEDICATIONS WERE FAXED TO [facility]. PT PROVIDED WITH TRANSPORT HOME VIA [facility] WHEELCHAIR TRANSPORT.
== END 2021-04-22 12:57 | disposition home health service (06) | DRG 291 ==
LOC: ER 04:30 → PCU 04:31
PROVIDERS: Internal Medicine; Student in an Organized Health Care Education/Training Program; ADMIT Family Medicine
DX: I13.0 Hypertensive heart and chronic kidney disease with heart failure and stage 1 through stage 4 chronic kidney disease, or unspecified chronic kidney disease (principal); I50.23 Acute on chronic systolic (congestive) heart failure; J96.01 Acute respiratory failure with hypoxia; I24.8 Other forms of acute ischemic heart disease; I16.1 Hypertensive emergency; I25.10 Atherosclerotic heart disease of native coronary artery without angina pectoris; N18.30 Chronic kidney disease, stage 3 unspecified; E11.22 Type 2 diabetes mellitus with diabetic chronic kidney disease; Z20.822 Contact with and (suspected) exposure to COVID-19; Z23 Encounter for immunization; Z66 Do not resuscitate; E78.5 Hyperlipidemia, unspecified; K21.9 Gastro-esophageal reflux disease without esophagitis; N40.0 Benign prostatic hyperplasia without lower urinary tract symptoms; M10.9 Gout, unspecified; D63.1 Anemia in chronic kidney disease; I34.0 Nonrheumatic mitral (valve) insufficiency; I27.20 Pulmonary hypertension, unspecified; G47.33 Obstructive sleep apnea (adult) (pediatric); Z79.82 Long term (current) use of aspirin; Z86.73 Personal history of transient ischemic attack (TIA), and cerebral infarction without residual deficits; Z79.899 Other long term (current) drug therapy
CPT/HCPCS: 0241U; 36415; 71045; 71260; 80053; 80069; 82947; 83735; 83880; 84484; 85025; 85379; 90686; 93005; 93010; 93971; 94644; 94660; 94762; 96372; 96374; 96376; 97116; 97162; 99285-25; A9270; G0008; G0378; J1650; J1815; J1940; Q9967

== ENCOUNTER 2021-05-04 13:11 | Emergency (ER) | payer OTHER ==
[~2021-05-04] VITALS: Ht 170.2 cm; Wt 90.7 kg
[~2021-05-04 13:11] MED LIST changes: +LOSA25 PO
[2021-05-04 14:17] LABS: BASOPHILS ABSOLUTE AUTO 0.05 K/mm3 (0.00-0.23); BASOPHILS PERCENT AUTO 1 % (0-2); EOSINOPHILS ABSOLUTE AUTO 0.18 K/mm3 (0.00-0.68); EOSINOPHILS PERCENT AUTO 3 % (0-6); Hematocrit 37.4 % (37.0-53.0); Hemoglobin 11.7 g/dL (13.5-17.5); IMMATURE GRAN ABSOLUTE AUTO 0.01 K/mm3 (0.00-0.10); IMMATURE GRAN PERCENT AUTO 0 % (0-1); LYMPHOCYTES ABSOLUTE AUTO 0.92 K/mm3 (0.84-5.20); LYMPHOCYTES PERCENT AUTO 17 % (21-46); MONOCYTES ABSOLUTE AUTO 0.57 K/mm3 (0.16-1.47); MONOCYTES PERCENT AUTO 11 % (4-13); Mean Corpuscular HGB 28.1 pg (26.0-34.0); Mean Corpuscular HGB Conc 31.3 g/dL (31.5-36.5); Mean Corpuscular Volume 90 fL (80-100); Mean Platelet Volume 10.6 fL (9.1-12.4); NEUTROPHILS ABSOLUTE AUTO 3.57 K/mm3 (1.96-9.15); NEUTROPHILS PERCENT AUTO 67 % (41-73); Platelet Count 191 K/mm3 (150-400); RDW Coefficient Variation 15.5 % (11.7-14.2); RDW Standard Deviation 50.5 fL (35.1-46.3); Red Blood Cell Count 4.16 M/mm3 (4.30-5.90)
[2021-05-04 14:29] LABS: Albumin, Blood 2.8 g/dL (3.4-5.0); Albumin/Globulin Ratio 0.8 (0.8-1.8); Bilirubin, Total 0.3 mg/dL (0.1-1.0); Bun/Creatinine Ratio 17.1 (12.0-20.0); Calcium, Blood 8.7 mg/dL (8.5-10.1); Creatinine, Blood 1.81 mg/dL (0.60-1.20); Globulin, Blood 3.4 g/dL (2.2-4.0); Potassium, Blood 4.3 mmol/L (3.5-5.5); Total Protein, Blood 6.2 g/dL (6.4-8.2); Troponin I 0.018 ng/mL (0.000-0.040)
[2021-05-04 14:59] LABS: Influenza A, PCR NEGATIVE (NEGATIVE); Influenza B, PCR NEGATIVE (NEGATIVE); Resp Syncytial Virus, PCR NEGATIVE (NEGATIVE); SARS-Cov-2 (COVID-19) PCR, MMC NEGATIVE (NEGATIVE)
== END 2021-05-04 18:03 | disposition home or self-care (01) ==
LOC: ER 13:11
PROVIDERS: Student in an Organized Health Care Education/Training Program
DX: I11.0 Hypertensive heart disease with heart failure (principal); E11.22 Type 2 diabetes mellitus with diabetic chronic kidney disease; N18.30 Chronic kidney disease, stage 3 unspecified; I50.9 Heart failure, unspecified; R06.02 Shortness of breath; Z20.822 Contact with and (suspected) exposure to COVID-19; K21.9 Gastro-esophageal reflux disease without esophagitis; M10.9 Gout, unspecified; G47.33 Obstructive sleep apnea (adult) (pediatric); Z79.82 Long term (current) use of aspirin; Z79.899 Other long term (current) drug therapy
CPT/HCPCS: 0241U; 36415; 71046; 80053; 83735; 83880; 84484; 85025; 93005; 93010; 96374; 99285-25; J1940

== ENCOUNTER 2021-12-12 08:00 | Emergency (ER) | payer OTHER ==
[~2021-12-12] VITALS: Ht 167.6 cm; Wt 90.7 kg
[2021-12-12 10:41] LABS: BASOPHILS ABSOLUTE AUTO 0.06 K/mm3 (0.00-0.23); BASOPHILS PERCENT AUTO 1 % (0-2); EOSINOPHILS ABSOLUTE AUTO 0.14 K/mm3 (0.00-0.68); EOSINOPHILS PERCENT AUTO 2 % (0-6); Hematocrit 43.5 % (37.0-53.0); Hemoglobin 13.6 g/dL (13.5-17.5); IMMATURE GRAN ABSOLUTE AUTO 0.01 K/mm3 (0.00-0.10); IMMATURE GRAN PERCENT AUTO 0 % (0-1); LYMPHOCYTES ABSOLUTE AUTO 0.84 K/mm3 (0.84-5.20); LYMPHOCYTES PERCENT AUTO 15 % (21-46); MONOCYTES ABSOLUTE AUTO 0.63 K/mm3 (0.16-1.47); MONOCYTES PERCENT AUTO 11 % (4-13); Mean Corpuscular HGB 28.3 pg (26.0-34.0); Mean Corpuscular HGB Conc 31.3 g/dL (31.5-36.5); Mean Corpuscular Volume 91 fL (80-100); Mean Platelet Volume 10.6 fL (9.1-12.4); NEUTROPHILS ABSOLUTE AUTO 4.13 K/mm3 (1.96-9.15); NEUTROPHILS PERCENT AUTO 71 % (41-73); Platelet Count 180 K/mm3 (150-400); RDW Coefficient Variation 14.4 % (11.7-14.2); RDW Standard Deviation 47.1 fL (35.1-46.3); White Blood Cell Count 5.81 K/mm3 (4.00-11.30)
[2021-12-12 11:01] LABS: Source, Urine Clean Catch
[2021-12-12 11:02] LABS: Albumin, Blood 3.1 g/dL (3.4-5.0); Bilirubin, Total 0.4 mg/dL (0.1-1.0); Bun/Creatinine Ratio 27.9 (12.0-20.0); Calcium, Blood 8.7 mg/dL (8.5-10.1); Creatinine, Blood 1.72 mg/dL (0.60-1.20); Globulin, Blood 3.1 g/dL (2.2-4.0); Potassium, Blood 4.9 mmol/L (3.5-5.5); Total Protein, Blood 6.2 g/dL (6.4-8.2)
[2021-12-12 11:04] LABS: Appearance, Urine Clear (Clear); Bilirubin, Urine Neg (Neg); Blood, Urine 3+ (Neg); Color, Urine Yellow (P-Yellow); Glucose Qualitative, Urine Neg (Neg); Ketones, Urine Neg (Neg); Leukocyte Esterase, Urine Neg (Neg); Nitrite, Urine Neg (Neg); Protein, Urine 3+ (Neg); Specific Gravity, Urine 1.015 (1.003-1.022); Urobilinogen, Urine NORM (Normal)
[2021-12-12 11:11] LABS: Bacteria Few /hpf; Hyaline Casts 0-2 /lpf (0-2); Mucus Light (0-Heavy); Red Blood Cells, Urine 0-2 /hpf (0-2); Squamous Epithelial Cells Rare /hpf (Few); White Blood Cells, Urine 0-2 /hpf (0-5)
== END 2021-12-12 12:31 | disposition home or self-care (01) ==
LOC: ER 08:00
PROVIDERS: Physician Assistant
DX: M25.561 Pain in right knee (principal); W19.XXXA Unspecified fall, initial encounter; R31.9 Hematuria, unspecified; I11.0 Hypertensive heart disease with heart failure; I50.9 Heart failure, unspecified; E11.9 Type 2 diabetes mellitus without complications; Z79.899 Other long term (current) drug therapy
CPT/HCPCS: 36415; 73562-RT; 80053; 81001; 83880; 85025; 96374; 99284-25; J1940

== ENCOUNTER 2021-12-14 06:23 | Observation (INO) | payer OTHER ==
[~2021-12-14] VITALS: Ht 170.2 cm; Wt 90.7 kg
[2021-12-14 07:12] LABS: BASOPHILS ABSOLUTE AUTO 0.04 K/mm3 (0.00-0.23); BASOPHILS PERCENT AUTO 1 % (0-2); EOSINOPHILS ABSOLUTE AUTO 0.17 K/mm3 (0.00-0.68); EOSINOPHILS PERCENT AUTO 3 % (0-6); Hematocrit 37.7 % (37.0-53.0); Hemoglobin 12.3 g/dL (13.5-17.5); IMMATURE GRAN ABSOLUTE AUTO 0.02 K/mm3 (0.00-0.10); IMMATURE GRAN PERCENT AUTO 0 % (0-1); LYMPHOCYTES ABSOLUTE AUTO 0.73 K/mm3 (0.84-5.20); LYMPHOCYTES PERCENT AUTO 13 % (21-46); MONOCYTES ABSOLUTE AUTO 0.67 K/mm3 (0.16-1.47); MONOCYTES PERCENT AUTO 12 % (4-13); Mean Corpuscular HGB Conc 32.6 g/dL (31.5-36.5); Mean Corpuscular Volume 89 fL (80-100); Mean Platelet Volume 10.5 fL (9.1-12.4); NEUTROPHILS ABSOLUTE AUTO 4.18 K/mm3 (1.96-9.15); NEUTROPHILS PERCENT AUTO 72 % (41-73); Platelet Count 169 K/mm3 (150-400); RDW Coefficient Variation 14.3 % (11.7-14.2); RDW Standard Deviation 46.3 fL (35.1-46.3); Red Blood Cell Count 4.24 M/mm3 (4.30-5.90); White Blood Cell Count 5.81 K/mm3 (4.00-11.30)
[2021-12-14 07:31] LABS: Source, Urine Voided
[2021-12-14 07:35] LABS: Appearance, Urine Clear (Clear); Bilirubin, Urine Neg (Neg); Blood, Urine 2+ (Neg); Color, Urine Yellow (P-Yellow); Glucose Qualitative, Urine Neg (Neg); Ketones, Urine Neg (Neg); Leukocyte Esterase, Urine Neg (Neg); Nitrite, Urine Neg (Neg); Protein, Urine 2+ (Neg); Urobilinogen, Urine NORM (Normal)
[2021-12-14 07:36] LABS: Albumin, Blood 3.1 g/dL (3.4-5.0); Bilirubin, Total 0.4 mg/dL (0.1-1.0); Bun/Creatinine Ratio 27.5 (12.0-20.0); Calcium, Blood 8.4 mg/dL (8.5-10.1); Creatinine, Blood 1.89 mg/dL (0.60-1.20); Potassium, Blood 4.7 mmol/L (3.5-5.5); Thyroid Stimulating Hormone 0.509 uIU/mL (0.360-4.800); Total Protein, Blood 6.1 g/dL (6.4-8.2)
[2021-12-14 07:49] LABS: Specific Gravity, Urine 1.015 (1.003-1.022)
[2021-12-14 07:51] LABS: Bacteria Rare /hpf; Squamous Epithelial Cells Rare /hpf (Few); White Blood Cells, Urine 0-2 /hpf (0-5)
[2021-12-14 08:29] LABS: Influenza A, PCR NEGATIVE (NEGATIVE); Influenza B, PCR NEGATIVE (NEGATIVE); Resp Syncytial Virus, PCR NEGATIVE (NEGATIVE); SARS-Cov-2 (COVID-19) PCR, MMC NEGATIVE (NEGATIVE)
--- NOTE | 2021-12-14 15:30 | NUR ---
PT ARRIVED TO UNIT @ THIS TIME. SLIDE TRANSFER, INCONT. OF BOWEL PT CLEANED UP. A&OX4. PLAN TO CALL PT FOR TRANSFER STATUS,TELE IN PLACE
--- NOTE | 2021-12-14 17:00 | NUR ---
DR ALVARADO CONTACTED INSTRUCTED BY DR. BAZZI-AILYN NOTED TO GROIN AREA/BUTTOCKS PLAN TO MEDICATE PER EMAR. SOFT FREQUENT STOOL REPORTED PLAN TO MEDICATE PER EMAR
--- NOTE | 2021-12-14 18:00 | NUR ---
DR ALVARADO NOTIFIED OF TROP LEVEL OF 163 BY THIS RN. REPEAT TROP SCHED FOR 6AM INSULIN ORDERED AND AC&HS BLOOD GLUCOSE
--- NOTE | 2021-12-15 04:46 | NUR ---
Rn summary: Patient is alert and oriented. Pt very pleasant. At beginning of shift pt had received Bumex and had urgency and frequency to void. He would set off bed alarm or yell out for help. This am he is using his call light. Pt has had no c/o pain. Tele has shown mostly sinus in the 60's with some drops to low 50's for short periods of time. Pt is WR[place]. He also has some vision deficits. Call light in reach.
[2021-12-15 06:10] LABS: Bun/Creatinine Ratio 24.2 (12.0-20.0); Calcium, Blood 8.3 mg/dL (8.5-10.1); Creatinine, Blood 1.98 mg/dL (0.60-1.20); Potassium, Blood 4.1 mmol/L (3.5-5.5)
--- NOTE | 2021-12-15 13:15 | NUR ---
PT AOX3 WITH CONFUSION. PT DISCHARGE TODAY AT 1300 WITH TRANSPORT ARRANGED WITH [facility] TO GET HOME. PT HAS HOME HEALTH ALREADY IN PLACE. PT IMPROVE TRACE EDEMA AT THIS TIME AND PT 1 PERSON STANDY TO RESTROOM. NO DISTRESS NOTED. PAPERWORT REVIEWED AND EDUCATIONAL MATERIAL SENT WITH HIM. PT ESCORTED OUT VIA WHEEL CHAIR TO S ENTRANCE.
== END 2021-12-15 13:11 | disposition home or self-care (01) ==
LOC: ER 06:23 → MEDS 06:24 → ER 06:24 → ERHOLD 06:24 → MEDS 15:24
PROVIDERS: Emergency Medicine; Nurse Practitioner Acute Care; ADMIT Internal Medicine
DX: I13.0 Hypertensive heart and chronic kidney disease with heart failure and stage 1 through stage 4 chronic kidney disease, or unspecified chronic kidney disease (principal); I50.23 Acute on chronic systolic (congestive) heart failure; N18.30 Chronic kidney disease, stage 3 unspecified; E11.22 Type 2 diabetes mellitus with diabetic chronic kidney disease; I25.10 Atherosclerotic heart disease of native coronary artery without angina pectoris; E78.5 Hyperlipidemia, unspecified; G47.33 Obstructive sleep apnea (adult) (pediatric); K21.9 Gastro-esophageal reflux disease without esophagitis; I27.20 Pulmonary hypertension, unspecified; G47.30 Sleep apnea, unspecified; N40.0 Benign prostatic hyperplasia without lower urinary tract symptoms; Z66 Do not resuscitate; Z86.73 Personal history of transient ischemic attack (TIA), and cerebral infarction without residual deficits; Z79.82 Long term (current) use of aspirin; Z79.02 Long term (current) use of antithrombotics/antiplatelets; Z79.899 Other long term (current) drug therapy; Z20.822 Contact with and (suspected) exposure to COVID-19
CPT/HCPCS: 0241U; 36415; 71045; 80048; 80053; 81001; 82947; 83880; 84443; 84484; 85025; 93005; 93010; 96372; 96374; 96376; 97116; 97162; 97530; 99285-25; A9270; G0378; J1644